=== PATIENT | male | born 1970 | race African-American/Black ===

== ENCOUNTER 2018-01-30 12:22 | Emergency (ER) | payer SELFPAY ==
[~2018-01-30] VITALS: Ht 175.3 cm; Wt 90.9 kg
[2018-01-30 12:46] VITALS: BP 147/81; PULSE 111; RESP 20; TEMP 98.1; O2SAT 95
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
[2018-01-30 15:12] LABS: AUTOMATED NEUTROPHIL # 7.2 TH/MM3 (1.8-7.7); BASOPHIL # 0.1 TH/MM3 (0-0.2); BASOPHIL % 0.6 % (0.0-2.0); EOSINOPHIL # 0.1 TH/MM3 (0-0.4); HEMATOCRIT 41.3 % (39.0-51.0); LYMPH % 29.7 % (9.0-44.0); LYMPHOCYTE # 3.6 TH/MM3 (1.0-4.8); MEAN CELL VOLUME 87.6 FL (80.0-100.0); MEAN CORPUSCULAR HEMOGLOBIN 29.6 PG (27.0-34.0); MEAN CORPUSCULAR HGB CONC 33.8 % (32.0-36.0); MEAN PLATELET VOLUME 6.6 FL (7.0-11.0); MONO % 9.2 % (0.0-8.0); MONOCYTE # 1.1 TH/MM3 (0-0.9); NEUT % 59.5 % (16.0-70.0); PLATELET COUNT 448 TH/MM3 (150-450); RED BLOOD COUNT 4.72 MIL/MM3 (4.50-5.90); RED CELL DISTRIBUTION WIDTH 14.8 % (11.6-17.2); WHITE BLOOD COUNT 12.1 TH/MM3 (4.0-11.0)
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
[2018-01-30 15:25] LABS: ALBUMIN 3.9 GM/DL (3.4-5.0); ALT (GPT) 39 U/L (12-78); AST (GOT) 40 U/L (15-37); BICARBONATE 23.4 MEQ/L (21.0-32.0); BLOOD UREA NITROGEN 10 MG/DL (7-18); CALCIUM 8.4 MG/DL (8.5-10.1); CHLORIDE 106 MEQ/L (98-107); CREATININE 0.83 MG/DL (0.60-1.30); GLOMERULAR FILTRATION RATE 99 ML/MIN (>89); GLUCOSE,RANDOM 102 MG/DL (74-106); SODIUM (NA) 139 MEQ/L (136-145)
[2018-01-30 15:27] LABS: ALKALINE PHOSPHATASE 117 U/L (45-117); TOTAL BILIRUBIN ADULT 0.5 MG/DL (0.2-1.0); TOTAL PROTEIN 8.1 GM/DL (6.4-8.2)
[2018-01-30 15:33] LABS: PROTHROMBIN TIME - PATIENT 9.7 SEC (9.8-11.6)
== END 2018-01-30 16:55 | disposition home or self-care (01) ==
LOC: NEPD 12:22
DX: S00.83XA Contusion of other part of head, initial encounter (principal); R00.0 Tachycardia, unspecified; V99.XXXA Unspecified transport accident, initial encounter
CPT/HCPCS: 70450; 71046; 72125; 73590; 80053; 85025; 85610; 85730

== ENCOUNTER 2018-02-08 07:08 | Inpatient (IN) | payer OTHER ==
[~2018-02-08] VITALS: Ht 175.3 cm; Wt 96.5 kg
[2018-02-08 11:15] VITALS: BP 104/75; PULSE 81; RESP 18; TEMP 98.2; O2SAT 98
[2018-02-08] MEDS ORDERED: MAGNESIUM HYDROXIDE SUSP 30 ML CUP PO PRN (16:15)
[2018-02-08] MEDS ORDERED: diphenhydrAMINE HCL 50 MG/ML VIAL IM PRN (16:15)
[2018-02-08] MEDS ORDERED: LORazepam 1 MG TAB PO PRN (16:15)
[2018-02-08] MEDS ORDERED: LORazepam 2 MG/ML VIAL IM PRN (16:15)
[2018-02-08] MEDS ORDERED: ALUMINUM/MAGNESIUM/SIMETH 30 ML CUP PO PRN (16:15)
[2018-02-08] MEDS ORDERED: ACETAMINOPHEN 325 MG TAB PO PRN (16:15)
[2018-02-08] MEDS ORDERED: hydrOXYzine HCL 50 MG TAB PO PRN (16:15)
[2018-02-08 17:00] VITALS: BP 123/74; PULSE 74; RESP 16; TEMP 97.8; O2SAT 98
[2018-02-08] MEDS ORDERED: diphenhydrAMINE HCL 50 MG CAP PO PRN (17:00)
[2018-02-08] MEDS: REMOVE OLD NICOTINE PATCH T-DERMAL SCH (21:00)
[2018-02-09 06:20] VITALS: BP 131/80; PULSE 89; RESP 16; TEMP 98.2; O2SAT 97
[2018-02-09] MEDS: NICOTINE 21 MG/24 HR PATCH T-DERMAL SCH ×2 (08:05→09:16)
[2018-02-09 09:05] LABS: BICARBONATE 27.7 MEQ/L (21.0-32.0); BLOOD UREA NITROGEN 10 MG/DL (7-18); CALCIUM 8.4 MG/DL (8.5-10.1); CHLORIDE 106 MEQ/L (98-107); CHOLESTEROL 183 MG/DL (120-200); CREATININE 0.74 MG/DL (0.60-1.30); GLOMERULAR FILTRATION RATE 137 ML/MIN (>89); GLUCOSE,RANDOM 156 MG/DL (74-106); SODIUM (NA) 139 MEQ/L (136-145); TRIGLYCERIDES 93 MG/DL (42-150)
[2018-02-09 09:07] LABS: CHOLESTEROL/ HDL RATIO 3.41 RATIO; HDL CHOLESTEROL 53.6 MG/DL (40.0-60.0); LDL CHOLESTEROL 111 MG/DL (0-99)
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
[2018-02-09] MEDS ORDERED: FLUMAZENIL 0.5 MG/5 ML VIAL IV PUSH PRN (13:00)
[2018-02-09] MEDS ORDERED: LORazepam 2 MG/ML VIAL IV PUSH PRN ×4 (13:00)
[2018-02-09] MEDS ORDERED: LORazepam 2 MG TAB PO PRN (13:00)
[2018-02-09] MEDS ORDERED: LORazepam 1 MG TAB PO PRN (13:00)
[2018-02-09] MEDS ORDERED: NICOTINE 21 MG/24 HR PATCH T-DERMAL PRN (14:45)
[2018-02-09 15:02] LABS: AUTOMATED NEUTROPHIL # 4.4 TH/MM3 (1.8-7.7); BASOPHIL % 0.6 % (0.0-2.0); EOSINOPHIL # 0.2 TH/MM3 (0-0.4); HEMATOCRIT 41.4 % (39.0-51.0); HEMOGLOBIN 13.8 GM/DL (13.0-17.0); LYMPH % 32.5 % (9.0-44.0); LYMPHOCYTE # 2.5 TH/MM3 (1.0-4.8); MEAN CELL VOLUME 87.9 FL (80.0-100.0); MEAN CORPUSCULAR HEMOGLOBIN 29.3 PG (27.0-34.0); MEAN CORPUSCULAR HGB CONC 33.3 % (32.0-36.0); MEAN PLATELET VOLUME 7.3 FL (7.0-11.0); MONO % 6.5 % (0.0-8.0); MONOCYTE # 0.5 TH/MM3 (0-0.9); NEUT % 57.4 % (16.0-70.0); PLATELET COUNT 468 TH/MM3 (150-450); RED BLOOD COUNT 4.71 MIL/MM3 (4.50-5.90); RED CELL DISTRIBUTION WIDTH 15.1 % (11.6-17.2); WHITE BLOOD COUNT 7.7 TH/MM3 (4.0-11.0)
--- NOTE | 2018-02-09 15:49 | RADRPT ---
EXAM DATE/TIME: 02/09/2018 14:53 [facility] COMPARISON: No previous studies available for comparison. INDICATIONS : Chest pain MEDICAL HISTORY : None. SURGICAL HISTORY : None. ENCOUNTER: Initial ACUITY: 1 week PAIN SCORE: 4/10 LOCATION: Right Chest FINDINGS: PA and lateral views of the chest demonstrate the lungs to be symmetrically aerated without evidence of mass, infiltrate or effusion. The cardiomediastinal contours are unremarkable. Osseous structure s are intact. CONCLUSION: No acute disease. Yves Moreno MD on February 09, 2018 at 15:45 Board Certified Radiologist. This report was verified electronically.
[2018-02-09 17:02] LABS: HEMOGLOBIN A1C 7.6 % (4.3-6.0)
[2018-02-09 18:31] VITALS: BP 123/61; PULSE 94; RESP 17; TEMP 97.8; O2SAT 100
[2018-02-09] MEDS: MIRTAZAPINE 15 MG TAB PO SCH (20:31)
[2018-02-09] MEDS: hydrOXYzine HCL 50 MG TAB PO PRN (20:31)
[2018-02-09] MEDS: REMOVE OLD NICOTINE PATCH T-DERMAL SCH (20:46)
[2018-02-10 06:17] VITALS: BP 118/73; PULSE 85; RESP 18; TEMP 98.2; O2SAT 98
[2018-02-10] MEDS: THIAMINE HCL 100 MG TAB PO SCH (07:37)
[2018-02-10] MEDS: FOLIC ACID 1 MG TAB PO SCH (07:37)
[2018-02-10] MEDS: MULTIVITAMINS/MINERALS THERAPEUTIC TAB PO SCH (07:37)
--- NOTE | 2018-02-10 12:58 | HHI.PYPN ---
Subjective Chief Complaint: Depression, SI Remarks Patient is seen in his room nurse Andrea, chart reviewed, patient compliant medications, patient discussed with nurse. Patient laying in his bed on his belly with covers up to his chin. He seems somewhat irritable and demanding with me denies voices or visions suicidality and homicidality. Asking for double portions. He otherwise patient continues to isolate with no significant behavior problem Review of Systems Except as stated in HPI: all other systems reviewed are Neg Mental Status Examination Appearance: Disheveled Consciousness: Alert Orientation: x4 Motor Activity: Normal gait Speech: Unremarkable Language: Adequate Fund of Knowledge: Adequate Attention and Concentration: Adequate Memory: Unremarkable (Grossly intact on clinical exam) Mood: Other (Somewhat dysphoric) Affect: Appropriate Thought Process & Associations: Intact, Logical, Linear Thought Content: Appropriate Hallucination Type: None Delusion Type: None Suicidal Ideation: Yes (Manipulatively threatens suicide if discharged as noted above) Suicidal Plan: No Suicidal Intention: No (No reported urge to hurt self on an inpatient unit) Homicidal Ideation: No Homicidal Plan: No Homicidal Intention: No Insight: Adequate Judgment: Adequate Results Vitals/IOs Vital Signs Date Time Temp Pulse Resp B/P (MAP) Pulse Ox O2 Delivery O2 Flow Rate FiO2 02/10/18 06:17 98.2 85 18 118/73 (88) 98 Assessment & Plan Problem List: (1) Adjustment disorder with depressed mood ICD Codes: F43.21 - Adjustment disorder with depressed mood (2) Polysubstance abuse ICD Codes: F19.10 - Other psychoactive substance abuse, uncomplicated Assessment & Plan Estimated LOS: days patient continues somewhat angry and irritable demanding and entitled low denies suicidality or homicidality voices or visions today with Justification for Cont. Inpt. At this time patient would decompensate a place lower level of care Discharge Planning To be determined Request HC Surrog/Guard Advoc?: No Fabián Odell MD February 10, 2018 12:58
[2018-02-10 17:57] VITALS: BP 120/71; PULSE 84; RESP 17; TEMP 98.2; O2SAT 97
[2018-02-10] MEDS: MIRTAZAPINE 15 MG TAB PO SCH (20:38)
[2018-02-10] MEDS: hydrOXYzine HCL 50 MG TAB PO PRN (20:44)
[2018-02-10] MEDS: REMOVE OLD NICOTINE PATCH T-DERMAL SCH (21:00)
[2018-02-11 06:00] VITALS: BP 122/76; PULSE 71; RESP 16; TEMP 98.7; O2SAT 98
[2018-02-11] MEDS: FOLIC ACID 1 MG TAB PO SCH (09:26)
[2018-02-11] MEDS: THIAMINE HCL 100 MG TAB PO SCH (09:26)
[2018-02-11] MEDS: MULTIVITAMINS/MINERALS THERAPEUTIC TAB PO SCH (09:26)
--- NOTE | 2018-02-11 13:42 | HHI.PYPN ---
Subjective Chief Complaint: Depression, SI Remarks Patient was seen and case discussed with nursing. Patient is vague and superficial during the interview. There is concern for manipulative behavior. He claims fleeting suicidal ideation. He went outside. Not interacting much with others. CIWA 0. Mental Status Examination Appearance: Disheveled Consciousness: Alert Orientation: x4 Motor Activity: Normal gait Speech: Unremarkable Language: Adequate Fund of Knowledge: Adequate Attention and Concentration: Adequate Memory: Unremarkable (Grossly intact on clinical exam) Mood: Other (Somewhat dysphoric) Affect: Appropriate Thought Process & Associations: Intact, Logical, Linear Thought Content: Appropriate Hallucination Type: None Delusion Type: None Suicidal Ideation: Yes (Fleeting, manipulative) Suicidal Plan: No Suicidal Intention: No (No reported urge to hurt self on an inpatient unit) Homicidal Ideation: No Homicidal Plan: No Homicidal Intention: No Insight: Adequate Judgment: Adequate Results Vitals/IOs Vital Signs Date Time Temp Pulse Resp B/P (MAP) Pulse Ox O2 Delivery O2 Flow Rate FiO2 02/11/18 06:00 98.7 71 16 122/76 (91) 98 Assessment & Plan Problem List: (1) Adjustment disorder with depressed mood ICD Codes: F43.21 - Adjustment disorder with depressed mood (2) Polysubstance abuse ICD Codes: F19.10 - Other psychoactive substance abuse, uncomplicated Assessment & Plan Continue current treatment plan Justification for Cont. Inpt. Patient would decompensate in a less restrictive setting Request HC Surrog/Guard Advoc?: No Kurt Parham DO February 11, 2018 13:42
[2018-02-11 18:49] VITALS: BP 123/70; PULSE 101; RESP 17; TEMP 98.1; O2SAT 98
[2018-02-11] MEDS: REMOVE OLD NICOTINE PATCH T-DERMAL SCH (19:37)
[2018-02-11] MEDS: MIRTAZAPINE 15 MG TAB PO SCH (20:33)
[2018-02-11] MEDS: hydrOXYzine HCL 50 MG TAB PO PRN (20:34)
[2018-02-12 05:42] VITALS: BP 122/71; PULSE 63; RESP 16; TEMP 99; O2SAT 95
[2018-02-12] MEDS: FOLIC ACID 1 MG TAB PO SCH (08:52)
[2018-02-12] MEDS: MULTIVITAMINS/MINERALS THERAPEUTIC TAB PO SCH (08:52)
[2018-02-12] MEDS: THIAMINE HCL 100 MG TAB PO SCH (08:52)
[2018-02-12] MEDS: hydrOXYzine HCL 50 MG TAB PO PRN ×2 (11:37→21:38)
--- NOTE | 2018-02-12 13:37 | HHI.PYPN ---
Subjective Chief Complaint: Depression, SI Remarks Patient was seen and case discussed with nursing. Patient remained superficial and minimally engaged during the interview. He says he is thinking of "nothing today." He becomes irritable when I question further Mental Status Examination Appearance: Disheveled Consciousness: Alert Orientation: x4 Motor Activity: Normal gait Speech: Unremarkable Language: Adequate Fund of Knowledge: Adequate Attention and Concentration: Adequate Memory: Unremarkable (Grossly intact on clinical exam) Mood: Other (Somewhat dysphoric) Affect: Appropriate Thought Process & Associations: Intact, Logical, Linear Thought Content: Appropriate Hallucination Type: None Delusion Type: None Suicidal Ideation: No (Denies today) Suicidal Plan: No Suicidal Intention: No (No reported urge to hurt self on an inpatient unit) Homicidal Ideation: No Homicidal Plan: No Homicidal Intention: No Insight: Adequate Judgment: Adequate Results Vitals/IOs Vital Signs Date Time Temp Pulse Resp B/P (MAP) Pulse Ox O2 Delivery O2 Flow Rate FiO2 02/12/18 05:42 99.0 63 16 122/71 (88) 95 Assessment & Plan Problem List: (1) Adjustment disorder with depressed mood ICD Codes: F43.21 - Adjustment disorder with depressed mood (2) Polysubstance abuse ICD Codes: F19.10 - Other psychoactive substance abuse, uncomplicated Assessment & Plan Continue current treatment plan Justification for Cont. Inpt. Patient would decompensate in a less restrictive setting Request HC Surrog/Guard Advoc?: No Kurt Parham DO February 12, 2018 13:37
[2018-02-12] MEDS: REMOVE OLD NICOTINE PATCH T-DERMAL SCH (21:00)
[2018-02-12] MEDS: MIRTAZAPINE 15 MG TAB PO SCH (21:37)
[2018-02-13 06:34] VITALS: BP 118/70; PULSE 69; RESP 18; TEMP 97.8; O2SAT 99
[2018-02-13] MEDS: MULTIVITAMINS/MINERALS THERAPEUTIC TAB PO SCH (09:06)
[2018-02-13] MEDS: THIAMINE HCL 100 MG TAB PO SCH (09:06)
[2018-02-13] MEDS: FOLIC ACID 1 MG TAB PO SCH (09:06)
[2018-02-13] MEDS ORDERED: METF500T PO (11:29)
[2018-02-13] MEDS ORDERED: MIRTA15 PO (11:29)
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
[2018-02-13 12:10] LABS: ALBUMIN 3.3 GM/DL (3.4-5.0); DIRECT BILIRUBIN ADULT 0.1 MG/DL (0.0-0.2)
[2018-02-13 12:12] LABS: INDIRECT BILIRUBIN 0.2 MG/DL (0.0-0.8); TOTAL BILIRUBIN ADULT 0.3 MG/DL (0.2-1.0); TOTAL PROTEIN 7.8 GM/DL (6.4-8.2)
[2018-02-13] MEDS ORDERED: metFORMIN HCL 500 MG TAB PO SCH (12:30)
== END 2018-02-13 18:33 | disposition home or self-care (01) | DRG 951 ==
LOC: H270 11:30
PROVIDERS: ADMIT Psychiatry & Neurology Psychiatry; ATTEND Psychiatry & Neurology Psychiatry
DX: Z76.5 Malingerer [conscious simulation] (principal); F60.2 Antisocial personality disorder; F19.10 Other psychoactive substance abuse, uncomplicated; R73.9 Hyperglycemia, unspecified
CPT/HCPCS: 71046; 80048; 80061; 80076; 83036; 84443; 85025